=== PATIENT | female | born 1955 | race Caucasian/White ===

== ENCOUNTER 2019-08-18 07:02 | Emergency (ER) | payer OTHER ==
[2019-08-18 07:13] VITALS: BP 137/78
--- NOTE | 2019-08-18 07:24 | UC ---
Ear Complaint HPI - HPI Summary HPI Summary: The patient is a 64-year-old female with right ear pain 2 days. It is been getting progressively worse. Last night she had little sleep due to the pain. She denies any fever. She denies any URI symptoms. She states that she has very narrow ear canals and has had to have wax washed in the past. She has been using Debrox. It hurts when she chews. It hurts when she touches her right ear. She is not a diabetic. She states she often wears earbuds. - History of Current Complaint Chief Complaint: UCEar Stated Complaint: EAR PAIN Time Seen by Provider: 08/18/19 07:14 Hx Obtained From: Patient Onset/Duration: Sudden Onset, Lasting Days Severity Initially: Mild Severity Currently: Severe Pain Intensity: 8 Pain Scale Used: 0-10 Numeric Aggravating Factors: Other - I ordered night drops chewing/touch Ear Image: 1 - BULLAE - Allergies/Home Medications Allergies/Adverse Reactions: Allergies Allergy/AdvReac Type Severity Reaction Status Date / Time No Known Allergies Allergy Verified 08/18/19 07:05 PMH/Surg Hx/FS Hx/Imm Hx Previously Healthy: Yes - Surgical History Surgical History: None - Family History Known Family History: Positive: Hypertension, Diabetes - Social History Alcohol Use: Daily Alcohol Amount: "A FEW GLASSES OF WINE PER NIGHT" Substance Use Type: None Smoking Status (MU): Never Smoked Tobacco Review of Systems All Other Systems Reviewed And Are Negative: Yes Constitutional: Positive: Negative Skin: Positive: Negative Eyes: Positive: Negative ENT: Positive: Ear Ache Respiratory: Positive: Negative Cardiovascular: Positive: Negative Gastrointestinal: Positive: Negative Genitourinary: Positive: Negative Motor: Positive: Negative Neurovascular: Positive: Negative Musculoskeletal: Positive: Negative Neurological: Positive: Negative Psychological: Positive: Negative Physical Exam Triage Information Reviewed: Yes Appearance: Well-Appearing, No Pain Distress, Well-Nourished Vital Signs: Initial Vital Signs Temp 97.2 F 08/18/19 07:09 Pulse 68 08/18/19 07:09 Resp 18 08/18/19 07:09 BP 137/78 08/18/19 07:09 Pulse Ox 100 08/18/19 07:09 Vital Signs Reviewed: Yes Eyes: Positive: Conjunctiva Clear - About maybe about ENT: Positive: TMs normal - Left normal/right unable to vis, Other - Right tragal tenderness/right EAC swollen shut with large bullous lesion/no mastoid tenderness. Negative: Hearing grossly normal - decreased right ear, Nasal congestion, Nasal drainage, Tonsillar swelling, Tonsillar exudate, Trismus, Muffled voice, Hoarse voice Neck: Positive: Supple, Nontender, No Lymphadenopathy Respiratory: Positive: Lungs clear, Normal breath sounds, No respiratory distress, No accessory muscle use Cardiovascular: Positive: RRR, No Murmur Musculoskeletal: Positive: ROM Intact, No Edema Neurological: Positive: Alert Psychological Exam: Normal Skin Exam: Normal Procedures - Procedure Summary Procedure Summary: PROCEDURE: Incison and drainage of bullous lesion RIGHT EAC Procedure explained TIme out preformed incised with 18 g needle fluid expressed- serous with a hint of turbidity culture obtain Patient tolerated the procedure well After the lesion was drained a HOWE EAR WICK was inserted into the Right EAC Polysporin otic drops instilled (4 drops) - Incision and Drainage Right Ear Anesthesia: Other - none Instrument(s): Needle Packing: Other - none Ear Complaint Course/Dx - Differential Dx/Diagnosis Provider Diagnosis: Right otitis externa, Elevated BP without diagnosis of hypertension Discharge ED - Sign-Out/Discharge Documenting (check all that apply): Patient Departure All imaging exams completed and their final reports reviewed: No Studies - Discharge Plan Condition: Stable Disposition: HOME Prescriptions: DOXYcycline CAP(*) [DOXYcycline 100MG CAP(*)] 100 mg PO BID #14 cap Patient Education Materials: Otitis Externa (ED) Referrals: Christian Brewer MD [Primary Care Provider] - 3 Days (recheck in 3-5 days) Additional Instructions: use ear drops as directed: 4 drops right ear 4 times a day for a week. tylenol or advil for pain recheck with Dr. Brewer early next weekl - Billing Disposition and Condition Condition: STABLE Disposition: Home
[2019-08-18] MEDS: Neomyc/Polym/HC 1% OTIC SUSP* **OTIC RIGHT EAR ONE ×2 (07:33→07:46)
--- NOTE | 2019-08-20 17:24 | UC ---
- Progress Note Progress Note: Patient was treated appropriately based on wound culture. Course/Dx - Diagnoses Provider Diagnoses: Right otitis externa, Elevated BP without diagnosis of hypertension Discharge ED - Sign-Out/Discharge Documenting (check all that apply): Post-Discharge Follow Up All imaging exams completed and their final reports reviewed: No Studies - Discharge Plan Condition: Stable Disposition: HOME Prescriptions: DOXYcycline CAP(*) [DOXYcycline 100MG CAP(*)] 100 mg PO BID #14 cap Patient Education Materials: Otitis Externa (ED) Referrals: Christian Brewer MD [Primary Care Provider] - 3 Days (recheck in 3-5 days) Additional Instructions: use ear drops as directed: 4 drops right ear 4 times a day for a week. tylenol or advil for pain recheck with Dr. Brewer early next weekl - Billing Disposition and Condition Condition: STABLE Disposition: Home
== END 2019-08-18 07:55 | disposition home or self-care (01) ==
LOC: UCEAST 07:02
DX: H60.91 Unspecified otitis externa, right ear (principal); R03.0 Elevated blood-pressure reading, without diagnosis of hypertension
CPT/HCPCS: 10060; 87070; 87077; 87186; 87205; 87640; 87641; 99212; A9270-GY; G0463